=== PATIENT | female | born 1960 | race African-American/Black ===

== ENCOUNTER 2020-06-12 15:18 | Emergency (ER) | payer OTHER, SELFPAY ==
[~2020-06-12] VITALS: Ht 167.6 cm; Wt 90.3 kg
[2020-06-12 15:20] VITALS: Ht 167.6 cm; Wt 90.3 kg
[2020-06-12 17:15] VITALS: BP 151/93
== END 2020-06-12 17:15 | disposition home or self-care (01) ==
LOC: ED 15:18
DX: U07.1 COVID-19 (principal); Z88.2 Allergy status to sulfonamides; Z88.1 Allergy status to other antibiotic agents
CPT/HCPCS: U0003